=== PATIENT | female | born 1970 | race Caucasian/White ===

== ENCOUNTER 2018-08-16 01:06 | Emergency (ER) | payer OTHER ==
[2018-08-16 02:15] VITALS: BP 129/67; PULSE 74; TEMP 97.6; BMI 30.1
--- NOTE | 2018-08-16 02:35 | PDOC ---
*Physical Exam - Vital Signs Last Vital Signs Temp Pulse Resp BP Pulse Ox 97.6 F 74 20 129/67 98 08/16/18 02:14 08/16/18 02:14 08/16/18 02:14 08/16/18 02:14 08/16/18 02:14 ED Treatment Course - LABORATORY CBC & Chemistry Diagram: 08/16/18 03:10 08/16/18 03:10 Medical Decision Making - Medical Decision Making 08/16/18 05:14 Patient seen by the advanced practice provider under my direct supervision. Ancillary testing reviewed as necessary. I agree with plan as outlined by the advanced practice provider. *DC/Admit/Observation/Transfer Diagnosis at time of Disposition: Abdominal pain, right upper quadrant - Discharge Dispostion Disposition: HOME Condition at time of disposition: Stable - Referrals Referrals: Allison Barrera MD [Primary Care Provider] - 2 Days - Patient Instructions Printed Discharge Instructions: DI for Abdominal Pain-Adult Additional Instructions: Thank you for choosing [facility]. It was a pleasure taking care of you. Your labs raised concern for anemia. Your sugar level was also high. Be sure to take your diabetic meds Follow-up with your primary care doctor for further evaluation. Return to the Emergency Department if your symptoms worsen or persist or have other concerning symptoms. - Post Discharge Activity
--- NOTE | 2018-08-16 02:50 | PDOC ---
History of Present Illness - General Chief Complaint: Pain, Acute Stated Complaint: ABD PAIN Time Seen by Provider: 08/16/18 02:22 History Source: Patient Exam Limitations: No Limitations Past History - Past Medical History Allergies/Adverse Reactions: Allergies Allergy/AdvReac Type Severity Reaction Status Date / Time No Known Drug Allergies Allergy Verified 08/16/18 02:14 Home Medications: Ambulatory Orders Vit/Iron Fum/Folic AC [ Tablet] 1 each PO DAILY 03/28/14 Ibuprofen [Motrin -] 800 mg PO TID #60 tablet 11/24/14 Anemia: No Asthma: No Cancer: No Cardiac Disorders: No CVA: No COPD: No CHF: No Dementia: No Diabetes: No GI Disorders: No Disorders: No HTN: No Hypercholesterolemia: No Liver Disease: No Seizures: No Thyroid Disease: No - Surgical History Abdominal Surgery: No Appendectomy: No Cardiac Surgery: No Cholecystectomy: No Lung Surgery: No Neurologic Surgery: No Orthopedic Surgery: No - Reproductive History (#): 4 Para: 3 Therapeutic (s) & number: No Tubal Ligation: Yes Spontaneous : 1 - Immunization History Td Vaccination: Yes Immunization Up to Date: Yes - Suicide/Smoking/Psychosocial Hx Smoking Status: No Smoking History: Never smoked Years of Tobacco Use: 0 Have you smoked in the past 12 months: No Number of Cigarettes Smoked Daily: 0 Cigars Per Day: 0 Information on smoking cessation initiated: No Hx Alcohol Use: No Drug/Substance Use Hx: No Substance Use Type: None Hx Substance Use Treatment: No *Physical Exam - Vital Signs Last Vital Signs Temp Pulse Resp BP Pulse Ox 97.6 F 74 20 129/67 98 08/16/18 02:14 08/16/18 02:14 08/16/18 02:14 08/16/18 02:14 08/16/18 02:14 - Physical Exam General Appearance: No: Apparent Distress Respiratory/Chest: positive: Lungs Clear, Normal Breath Sounds. negative: Respiratory Distress Cardiovascular: positive: Regular Rhythm, Regular Rate, S1, S2. negative: Murmur Gastrointestinal/Abdominal: positive: Normal Bowel Sounds, Soft, Other ( negative moser's sign). negative: Tender, Distended, Guarding, Rebound, Hernia , Mass Integumentary: positive: Normal Color Neurologic: positive: Fully Oriented, Alert, Normal Mood/Affect Moderate Sedation - Procedure Monitoring Vital Signs: Procedure Monitoring Vital Signs Temperature 97.6 F 08/16/18 02:14 Pulse Rate 74 08/16/18 02:14 Respiratory Rate 20 08/16/18 02:14 Blood Pressure 129/67 08/16/18 02:14 O2 Sat by Pulse Oximetry (%) 98 08/16/18 02:14 ED Treatment Course - LABORATORY CBC & Chemistry Diagram: 08/16/18 03:10 08/16/18 03:10 Medical Decision Making - Medical Decision Making 47 y/o F with hx of DM, x3 presents with nonradiating RUQ pain x 1 week that is intermittent in nature with some nausea. Also had 2 episodes of loose stools (1 yesterday and 1 today). Took Tylenol with some relief in pain. Pain is not worsened by anything and not associated with food intake. Patient had eaten dinner around 7 PM and tolerated it fine. Denies fever, sob, cp, vomiting, urinary complaints. Patient appears very comfortable on exam; less suspicious for cholecystitis Bedside RUQ sono attempted to check for gallstones; no obvious stones noted though study a bit difficult given patient body habitus; no obvious pericholecystic fluid or gallbladder wall thickening noted Will check labs If abnormal LFTs noted, will consider official sono 08/16/18 02:50 Abnormal Lab Results 08/16/18 08/16/18 03:10 03:10 Hgb 9.7 L Hct 29.8 L D MCV 70.9 L MCH 23.0 L D RDW 16.3 H Neutrophils % 41.6 L D Lymphocytes % 49.7 H D Anion Gap 4 L Random Glucose 199 H Calcium 8.2 L AST 55 H ALT 75 H Albumin 3.0 L Labs reviewed - LFTs only minimally elevated, glucose 199; incidental anemia noted as well (likely microcytic) Patient explained results of labs Stable for discharge; advised further f/u with her PCP 08/16/18 04:14 *DC/Admit/Observation/Transfer Diagnosis at time of Disposition: Abdominal pain, right upper quadrant - Discharge Dispostion Disposition: HOME Condition at time of disposition: Stable Decision to Admit order: No - Referrals Referrals: Allison Barrera MD [Primary Care Provider] - 2 Days - Patient Instructions Printed Discharge Instructions: DI for Abdominal Pain-Adult Additional Instructions: Thank you for choosing [facility]. It was a pleasure taking care of you. Your labs raised concern for anemia. Your sugar level was also high. Be sure to take your diabetic meds Follow-up with your primary care doctor for further evaluation. Return to the Emergency Department if your symptoms worsen or persist or have other concerning symptoms. - Post Discharge Activity
[2018-08-16 03:22] LABS: BASO % 0.3 % (0-2.0); EOS % 1.5 % (0-4.5); HEMATOCRIT 29.8 % (32.4-45.2); HEMOGLOBIN 9.7 GM/dL (10.7-15.3); LYMPH % 49.7 % (8-40); MCHC 32.5 g/dl (32.0-36.0); MEAN CELL VOLUME 70.9 fl (80-96); MEAN PLT VOLUME 7.8 fl (7.5-11.1); MONO % 6.9 % (3.8-10.2); NEUT % 41.6 % (42.8-82.8); PLATELET COUNT 281 K/MM3 (134-434); RBC 4.21 M/mm3 (3.60-5.2); RDW 16.3 % (11.6-15.6); WHITE BLOOD COUNT 9.4 K/mm3 (4.0-10.0)
[2018-08-16 03:42] LABS: ALK PHOS 108 U/L (45-117); ANION GAP 4 MMOL/L (8-16); BILIRUBIN,TOTAL 0.2 mg/dL (0.2-1); BLOOD UREA NITROGEN 12 mg/dL (7-18); CALCIUM 8.2 mg/dL (8.5-10.1); CHLORIDE 106 mmol/L (98-107); CO2 29 mmol/L (21-32); CREATININE 0.7 mg/dL (0.55-1.3); GLUCOSE,RANDOM 199 mg/dL (74-106); LIPASE 318 U/L (73-393); POTASSIUM 4.5 mmol/L (3.5-5.1); SGOT/AST 55 U/L (15-37); SGPT/ALT 75 U/L (13-61); SODIUM 139 mmol/L (136-145); TOT PROT 7.2 g/dl (6.4-8.2)
[2018-08-16] MEDS ORDERED: ACETAMINOPHEN 325 MG TABLET (FP) PO ONE (04:45)
[2018-08-16] MEDS ORDERED: ACETAMINOPHEN 325 MG TABLET (FP) ONE (04:47)
== END 2018-08-16 04:57 | disposition home or self-care (01) ==
LOC: JER 01:06
PROC: BF42ZZZ Ultrasonography of Gallbladder (ICD-10-PCS; principal; 2018-08-16)
DX: R10.11 Right upper quadrant pain (principal); E11.9 Type 2 diabetes mellitus without complications; Z79.84 Long term (current) use of oral hypoglycemic drugs; D64.9 Anemia, unspecified
CPT/HCPCS: 36415; 76705; 80053; 83690; 85025; 99281-25

== ENCOUNTER 2018-08-27 23:28 | Emergency (ER) | payer OTHER ==
[2018-08-27 23:42] VITALS: BMI 20.7
--- NOTE | 2018-08-28 01:54 | PDOC ---
History of Present Illness - General History Source: Patient Exam Limitations: No Limitations - History of Present Illness Initial Comments: 08/28/18 02:24 The patient is a 47 year old female with no PMH who presents to the ER with intermittent epigastric pain since July. Patient had an ultrasound on August 06 after presenting with similar symptoms, which showed no cholecystitis. Patient has an appointment scheduled with Dr. Graff GI, on September 11 for evaluation of fatty liver and elevated LFTs. Patient denies any fever, chills, nausea, vomiting, diarrhea, constipations, or urinary symptoms. Allergies: NKA Past surgical history: None reported Social history: No reported alcohol, drug or cigarette use. <Valorie Thompson - Last Filed: 08/28/18 02:23> <Rina Dominguez - Last Filed: 08/28/18 03:05> - General Chief Complaint: Pain Stated Complaint: ABDOMINAL PAIN Time Seen by Provider: 08/28/18 00:27 Past History <Valorie Thompson - Last Filed: 08/28/18 02:23> - Past Medical History Anemia: No Asthma: No Cancer: No Cardiac Disorders: No CVA: No COPD: No CHF: No Dementia: No Diabetes: No GI Disorders: No Disorders: No HTN: No Hypercholesterolemia: No Liver Disease: No Seizures: No Thyroid Disease: No - Surgical History Abdominal Surgery: No Appendectomy: No Cardiac Surgery: No Cholecystectomy: No Lung Surgery: No Neurologic Surgery: No Orthopedic Surgery: No - Reproductive History (#): 4 Para: 3 Therapeutic (s) & number: No Tubal Ligation: Yes Spontaneous : 1 - Immunization History Td Vaccination: Yes Immunization Up to Date: Yes - Suicide/Smoking/Psychosocial Hx Smoking Status: No Smoking History: Never smoked Years of Tobacco Use: 0 Have you smoked in the past 12 months: No Number of Cigarettes Smoked Daily: 0 Cigars Per Day: 0 Information on smoking cessation initiated: No Hx Alcohol Use: No Drug/Substance Use Hx: No Substance Use Type: None Hx Substance Use Treatment: No <Rina Dominguez - Last Filed: 08/28/18 03:05> - Past Medical History Allergies/Adverse Reactions: Allergies Allergy/AdvReac Type Severity Reaction Status Date / Time No Known Drug Allergies Allergy Verified 08/27/18 23:42 Home Medications: Ambulatory Orders Vit/Iron Fum/Folic AC [ Tablet] 1 each PO DAILY 03/28/14 Ibuprofen [Motrin -] 800 mg PO TID #60 tablet 11/24/14 Oxycodone HCl/Acetaminophen [Percocet 5-325 mg Tablet] 1 tab PO BID PRN #8 tablet MDD 2 tabs 08/28/18 Pantoprazole Sodium [Protonix -] 40 mg PO DAILY #30 tablet.ec MDD 1 tab Review of Systems - Review of Systems Able to Perform ROS?: Yes Comments:: 08/28/18 02:24 ADULT ROS GENERAL/CONSTITUTIONAL: No fever or chills. No weakness. HEAD, EYES, EARS, NOSE AND THROAT: No change in vision. No ear pain or discharge. No sore throat. CARDIOVASCULAR: No chest pain or shortness of breath. RESPIRATORY: No cough, wheezing, or hemoptysis. GASTROINTESTINAL: No nausea, vomiting, diarrhea or constipation. (+) Epigastric pain. GENITOURINARY: No dysuria, frequency, or change in urination. MUSCULOSKELETAL: No joint or muscle swelling or pain. No neck or back pain. SKIN: No rash NEUROLOGIC: No headache, vertigo, loss of consciousness, or change in strength/ sensation. ENDOCRINE: No increased thirst. No abnormal weight change. HEMATOLOGIC/LYMPHATIC: No anemia, easy bleeding, or history of blood clots. ALLERGIC/IMMUNOLOGIC: No hives or skin allergy. <Valorie Thompson - Last Filed: 08/28/18 02:23> *Physical Exam - Vital Signs Last Vital Signs Temp Pulse Resp BP Pulse Ox 98.2 F 76 18 143/75 100 08/27/18 23:39 08/27/18 23:39 08/27/18 23:39 08/27/18 23:39 08/27/18 23:39 - Physical Exam Comments: 08/28/18 02:24 ADULT EXAM GENERAL: Awake, alert, and fully oriented, in no acute distress HEAD: No signs of trauma EYES: PERRLA, EOMI, sclera anicteric, conjunctiva clear ENT: Auricles normal inspection, hearing grossly normal, nares patent, oropharynx clear without exudates. Moist mucosa NECK: Normal ROM, supple, no lymphadenopathy, JVD, or masses LUNGS: Breath sounds equal, clear to auscultation bilaterally. No wheezes, and no crackles HEART: Regular rate and rhythm, normal S1 and S2, no murmurs, rubs or gallops ABDOMEN: (+) Tenderness to the RUQ with deep palpation. Soft, normoactive bowel sounds. No guarding, no rebound. No masses EXTREMITIES: Normal range of motion, no edema. No clubbing or cyanosis. No cords, erythema, or tenderness NEUROLOGICAL: Cranial nerves II through XII grossly intact. Normal speech, normal gait SKIN: Warm, Dry, normal turgor, no rashes or lesions noted. <Valorie Thompson - Last Filed: 08/28/18 02:23> - Vital Signs Last Vital Signs Temp Pulse Resp BP Pulse Ox 98.2 F 76 18 143/75 100 08/27/18 23:39 08/27/18 23:39 08/27/18 23:39 08/27/18 23:39 08/27/18 23:39 <Rina Dominguez - Last Filed: 08/28/18 03:05> Moderate Sedation - Procedure Monitoring Vital Signs: Procedure Monitoring Vital Signs Temperature 98.2 F 08/27/18 23:39 Pulse Rate 76 08/27/18 23:39 Respiratory Rate 18 08/27/18 23:39 Blood Pressure 143/75 08/27/18 23:39 O2 Sat by Pulse Oximetry (%) 100 08/27/18 23:39 <Valorie Thompson - Last Filed: 08/28/18 02:23> - Procedure Monitoring Vital Signs: Procedure Monitoring Vital Signs Temperature 98.2 F 08/27/18 23:39 Pulse Rate 76 08/27/18 23:39 Respiratory Rate 18 08/27/18 23:39 Blood Pressure 143/75 08/27/18 23:39 O2 Sat by Pulse Oximetry (%) 100 08/27/18 23:39 <Rina Dominguez - Last Filed: 08/28/18 03:05> ED Treatment Course - LABORATORY CBC & Chemistry Diagram: 08/28/18 01:35 08/28/18 01:35 - ADDITIONAL ORDERS Additional order review: 08/28/18 01:35 RBC 4.67 MCV 70.2 L MCHC 31.9 L RDW 15.9 H MPV 8.2 Neutrophils % 59.0 D Lymphocytes % 34.8 D Monocytes % 4.9 Eosinophils % 1.1 Basophils % 0.2 - Medications Given in the ED: ED Medications Discontinued Medications Generic Name Dose Route Start Last Admin Trade Name Sarwat PRN Reason Stop Dose Admin Acetaminophen 975 mg 08/28/18 02:01 08/28/18 02:17 Tylenol - PO 08/28/18 02:02 975 mg ONCE STA Administration Al Hydroxide/Mg Hydroxide 30 ml 08/28/18 02:00 08/28/18 02:17 Mylanta Oral Suspension - PO 08/28/18 02:01 30 ml ONCE ONE Administration Pantoprazole Sodium 40 mg 08/28/18 02:00 08/28/18 02:17 Protonix - PO 08/28/18 02:01 40 mg ONCE ONE Administration <Valorie Thompson - Last Filed: 08/28/18 02:23> - LABORATORY CBC & Chemistry Diagram: 08/28/18 01:35 08/28/18 01:35 <Rina Dominguez - Last Filed: 08/28/18 03:05> *DC/Admit/Observation/Transfer - Attestations Scribe Attestion: 08/28/18 02:25 Documentation prepared by Valorie Thompson, acting as medical technicians for Rina Dominguez MD. <Valorie Thompson - Last Filed: 08/28/18 02:23> <Rina Dominguez - Last Filed: 08/28/18 03:05> Diagnosis at time of Disposition: Epigastric pain - Discharge Dispostion Condition at time of disposition: Stable - Prescriptions Prescriptions: Oxycodone HCl/Acetaminophen [Percocet 5-325 mg Tablet] 1 tab PO BID PRN #8 tablet MDD 2 tabs PRN Reason: Severe Pain Pantoprazole Sodium [Protonix -] 40 mg PO DAILY #30 tablet.ec MDD 1 tab - Referrals Referrals: Brie Griffin NP [Primary Care Provider] - Twin Graff MD [Staff Physician] - - Patient Instructions Printed Discharge Instructions: DI for Epigastric Pain Additional Instructions: 1. please rock picker your medications at your pharmacy 2. Keep your appointment with Dr Graff - Post Discharge Activity
[2018-08-28 02:00] LABS: BASO % 0.2 % (0-2.0); EOS % 1.1 % (0-4.5); HEMATOCRIT 32.8 % (32.4-45.2); HEMOGLOBIN 10.4 GM/dL (10.7-15.3); LYMPH % 34.8 % (8-40); MCH 22.4 pg (25.7-33.7); MCHC 31.9 g/dl (32.0-36.0); MEAN CELL VOLUME 70.2 fl (80-96); MEAN PLT VOLUME 8.2 fl (7.5-11.1); MONO % 4.9 % (3.8-10.2); PLATELET COUNT 294 K/MM3 (134-434); RBC 4.67 M/mm3 (3.60-5.2); RDW 15.9 % (11.6-15.6); WHITE BLOOD COUNT 13.5 K/mm3 (4.0-10.0)
[2018-08-28] MEDS ORDERED: MAG HYDROX/AL HYDROX/SIMETH 30 ML UNIT-DOSE CUP PO ONE (02:00)
[2018-08-28] MEDS ORDERED: PANTOPRAZOLE 40 MG TABLET (FP) PO ONE (02:00)
[2018-08-28] MEDS ORDERED: ACETAMINOPHEN 500 MG TABLET (FP) PO STA (02:01)
[2018-08-28] MEDS ORDERED: MAG HYDROX/AL HYDROX/SIMETH 30 ML UNIT-DOSE CUP ONE (02:11)
[2018-08-28] MEDS ORDERED: ACETAMINOPHEN 325 MG TABLET (FP) ONE (02:11)
[2018-08-28] MEDS ORDERED: PANTOPRAZOLE 40 MG TABLET (FP) ONE (02:11)
[2018-08-28 02:25] LABS: ALBUMIN 3.2 g/dl (3.4-5.0); ALK PHOS 132 U/L (45-117); ANION GAP 6 MMOL/L (8-16); BILIRUBIN,TOTAL 0.2 mg/dL (0.2-1); BLOOD UREA NITROGEN 9 mg/dL (7-18); CALCIUM 8.7 mg/dL (8.5-10.1); CHLORIDE 101 mmol/L (98-107); CO2 28 mmol/L (21-32); CREATININE 0.7 mg/dL (0.55-1.3); GLUCOSE,RANDOM 247 mg/dL (74-106); POTASSIUM 4.7 mmol/L (3.5-5.1); SGOT/AST 36 U/L (15-37); SGPT/ALT 62 U/L (13-61); SODIUM 134 mmol/L (136-145); TOT PROT 7.7 g/dl (6.4-8.2)
[2018-08-28] MEDS ORDERED: SODIUM CHLORIDE 1,000 ML IV STA (02:59)
[2018-08-28 05:11] VITALS: BP 107/50; PULSE 65; TEMP 98.1
== END 2018-08-28 05:23 | disposition home or self-care (01) ==
LOC: JER 23:28
PROC: 3E0337Z Introduction of Electrolytic and Water Balance Substance into Peripheral Vein, Percutaneous Approach (ICD-10-PCS; principal; 2018-08-27)
DX: R10.11 Right upper quadrant pain (principal)
CPT/HCPCS: 36415; 74177-TC; 80053; 84703; 85025; 96360; 99282-25; J7030

== ENCOUNTER 2019-03-05 15:13 | Emergency (ER) | payer OTHER ==
--- NOTE | 2019-03-05 15:23 | PDOC ---
Rapid Medical Evaluation Chief Complaint: Pain Time Seen by Provider: 03/05/19 15:22 Medical Evaluation: Allergies Allergy/AdvReac Type Severity Reaction Status Date / Time No Known Drug Allergies Allergy Verified 08/27/18 23:42 03/05/19 15:23 I have performed a brief in-person evaluation of this patient. The patient presents with a chief complaint of:neck/shoulder pain Pertinent physical exam findings:stable and well tone I have ordered the following:nothing The patient will proceed to the ED for further evaluation. Discharge Disposition - Diagnosis Neck pain - Referrals - Patient Instructions - Post Discharge Activity
[2019-03-05 15:24] VITALS: BP 117/75; PULSE 100; TEMP 98.5; BMI 30.1
[2019-03-05] MEDS ORDERED: KETOROLAC TROMETHAMINE 60 MG/2 ML VIAL IM ONE (15:42)
[2019-03-05] MEDS ORDERED: KETOROLAC TROMETHAMINE 60 MG/2 ML VIAL ONE (15:46)
--- NOTE | 2019-03-05 15:48 | PDOC ---
History of Present Illness - General Chief Complaint: Pain Stated Complaint: LT.ARM PAIN Time Seen by Provider: 03/05/19 15:22 - History of Present Illness Initial Comments: 03/05/19 15:50 48-year-old female without comorbidities presents for evaluation of neck pain with left arm radicular symptoms. No loss of bowel or bladder function saddle paresthesia or systemic symptoms. This is going on for about the last week without any precipitating traumatic event. Past History - Past Medical History Allergies/Adverse Reactions: Allergies Allergy/AdvReac Type Severity Reaction Status Date / Time No Known Drug Allergies Allergy Verified 03/05/19 15:24 Home Medications: Ambulatory Orders Oxycodone HCl/Acetaminophen [Percocet 5-325 mg Tablet] 1 tab PO BID PRN #8 tablet MDD 2 tabs 08/28/18 Pantoprazole Sodium [Protonix -] 40 mg PO DAILY #30 tablet.ec MDD 1 tab Cyclobenzaprine HCl [Flexeril 10 mg] 10 mg PO HS PRN #10 tablet 03/05/19 Methylprednisolone [Medrol Dose Chavo] 4 mg PO ASDIR #21 tablet 03/05/19 Anemia: No Asthma: No Cancer: No Cardiac Disorders: No CVA: No COPD: No CHF: No Dementia: No Diabetes: No GI Disorders: No Disorders: No HTN: No Hypercholesterolemia: No Liver Disease: No Seizures: No Thyroid Disease: No - Surgical History Abdominal Surgery: No Appendectomy: No Cardiac Surgery: No Cholecystectomy: No Lung Surgery: No Neurologic Surgery: No Orthopedic Surgery: No - Reproductive History (#): 4 Para: 3 Therapeutic (s) & number: No Tubal Ligation: Yes Spontaneous : 1 - Immunization History Td Vaccination: Yes Immunization Up to Date: Yes - Suicide/Smoking/Psychosocial Hx Smoking Status: No Smoking History: Never smoked Years of Tobacco Use: 0 Have you smoked in the past 12 months: No Number of Cigarettes Smoked Daily: 0 Cigars Per Day: 0 Hx Alcohol Use: No Drug/Substance Use Hx: No Substance Use Type: None Hx Substance Use Treatment: No Review of Systems - Review of Systems Constitutional: No: Fever Musculoskeletal: Yes: Neck Pain *Physical Exam - Vital Signs Last Vital Signs Temp Pulse Resp BP Pulse Ox 98.5 F 100 H 18 117/75 99 03/05/19 15:23 03/05/19 15:23 03/05/19 15:23 03/05/19 15:23 03/05/19 15:23 - Physical Exam Comments: 03/05/19 15:49 Cervical spine skin color and temperature are normal; range of motion slightly decreased. 5 out of 5 strength bilateral upper extremities. There is no midline tenderness, there is mild bilateral paracervical muscular spasm and tenderness. NVID free of any gross sensory or motor deficits Medical Decision Making - Medical Decision Making 03/05/19 15:48 Cervical radiculopathy will treat with Medrol Dosepak and Flexeril have patient follow-up with neurosurgery *DC/Admit/Observation/Transfer Diagnosis at time of Disposition: Neck pain, Cervical radiculopathy - Discharge Dispostion Disposition: HOME Condition at time of disposition: Stable Decision to Admit order: No - Prescriptions Prescriptions: Cyclobenzaprine HCl [Flexeril 10 mg] 10 mg PO HS PRN #10 tablet PRN Reason: Muscle Spasms Methylprednisolone [Medrol Dose Chavo] 4 mg PO ASDIR #21 tablet - Referrals Referrals: Ghassan Jhaveri MD, FAANS [Staff Physician] - - Patient Instructions Printed Discharge Instructions: DI for Cervical Radiculopathy Additional Instructions: Please start steroid pack in the morning. Take the medication as directed. The muscle relaxers one tablet before bedtime and will make you sleepy. He may take Tylenol as directed in addition to the steroid pack. Avoid anti-inflammatory such as Advil Motrin Aleve and ibuprofen. You're given an injection of a long- acting anti-inflammatory in the emergency room do not take any anti- inflammatories. Return to the emergency room should symptoms worsen or go unresolved and follow- up with neuro or spine surgery without fail in 1-2 days for further evaluation and treatment options. - Post Discharge Activity
== END 2019-03-05 15:50 | disposition home or self-care (01) ==
LOC: JERFT 15:13
PROC: 3E0233Z Introduction of Anti-inflammatory into Muscle, Percutaneous Approach (ICD-10-PCS; principal; 2019-03-05)
DX: M54.2 Cervicalgia (principal); M54.12 Radiculopathy, cervical region
CPT/HCPCS: 96372; 99282-25

== ENCOUNTER 2019-06-06 21:31 | Emergency (ER) | payer OTHER ==
[2019-06-06 21:56] VITALS: BP 151/75; PULSE 92; TEMP 98.6; BMI 31.1
[2019-06-07] MEDS ORDERED: ACETAMINOPHEN 325 MG TABLET (FP) PO ONE (00:32)
[2019-06-07] MEDS ORDERED: ACETAMINOPHEN 325 MG TABLET (FP) ONE (00:42)
[2019-06-07] MEDS ORDERED: KETOROLAC TROMETHAMINE 60 MG/2 ML VIAL IM ONE (01:18)
[2019-06-07] MEDS ORDERED: METHOCARBAMOL 500 MG TABLET PO ONE (01:18)
[2019-06-07] MEDS ORDERED: KETOROLAC TROMETHAMINE 60 MG/2 ML VIAL ONE (01:26)
[2019-06-07] MEDS ORDERED: METHOCARBAMOL 500 MG TABLET ONE (01:26)
--- NOTE | 2019-06-07 01:30 | PDOC ---
History of Present Illness - General Chief Complaint: Pain Stated Complaint: NECK/ARM PAIN Time Seen by Provider: 06/07/19 01:10 History Source: Patient Exam Limitations: No Limitations Past History - Past Medical History Allergies/Adverse Reactions: Allergies Allergy/AdvReac Type Severity Reaction Status Date / Time No Known Drug Allergies Allergy Verified 03/05/19 15:24 Home Medications: Ambulatory Orders Methocarbamol [Robaxin -] 1,500 mg PO QID PRN #24 tablet 06/07/19 Anemia: No Asthma: No Cancer: No Cardiac Disorders: No CVA: No COPD: No CHF: No Dementia: No Diabetes: No GI Disorders: No Disorders: No HTN: No Hypercholesterolemia: No Liver Disease: No Seizures: No Thyroid Disease: No - Surgical History Abdominal Surgery: No Appendectomy: No Cardiac Surgery: No Cholecystectomy: No Lung Surgery: No Neurologic Surgery: No Orthopedic Surgery: No - Reproductive History (#): 4 Para: 3 Therapeutic (s) & number: No Tubal Ligation: Yes Spontaneous : 1 - Immunization History Td Vaccination: Yes Immunization Up to Date: Yes - Psycho Social/Smoking Cessation Hx Smoking Status: No Smoking History: Never smoked Years of Tobacco Use: 0 Have you smoked in the past 12 months: No Number of Cigarettes Smoked Daily: 0 Cigars Per Day: 0 Hx Alcohol Use: No Drug/Substance Use Hx: No Substance Use Type: None Hx Substance Use Treatment: No *Physical Exam - Vital Signs Last Vital Signs Temp Pulse Resp BP Pulse Ox 98.6 F 92 H 19 151/75 100 06/06/19 21:53 06/06/19 21:53 06/06/19 21:53 06/06/19 21:53 06/06/19 21:53 - Physical Exam General Appearance: No: Apparent Distress Neck: positive: Other (+muscle tightness/spasms along L upper traps). negative : Tender midline Respiratory/Chest: positive: Lungs Clear, Normal Breath Sounds. negative: Respiratory Distress Cardiovascular: positive: Regular Rhythm, Regular Rate, S1, S2. negative: Murmur Neurologic: positive: Alert, Normal Mood/Affect, Motor Strength 5/5 ED Treatment Course - Medications Given in the ED: ED Medications Discontinued Medications Generic Name Dose Route Start Last Admin Trade Name Freq PRN Reason Stop Dose Admin Acetaminophen 975 mg 06/07/19 00:32 06/07/19 00:44 Tylenol - PO 06/07/19 00:33 975 mg ONCE ONE Administration Medical Decision Making - Medical Decision Making 48 y/o F with no sig pmh presents with L upper neck pain radiating down arm x 3 days. Denies heavy work, trauma, fever, sob, cp, numbness/tingling/weakness of extremities. 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 Was seen in February for similar sxs; at that time, sxs resolved with Medrol dosepak and muscle relaxer. Likely muscle spasm No concern for ACS, radiculopathy based on exam Plan: Toradol, Robaxin 06/07/19 01:26 Discharge - Discharge Information Problems reviewed: Yes Clinical Impression/Diagnosis: Muscle spasm Condition: Stable Disposition: HOME - Admission No - Additional Discharge Information Prescriptions: Methocarbamol [Robaxin -] 1,500 mg PO QID PRN #24 tablet PRN Reason: Muscle Spasms Prescription Drug Monitoring Program (I-STOP) results: I-STOP not reviewed - Follow up/Referral Referrals: Allison Barrera MD [Primary Care Provider] - 2 Days - Patient Discharge Instructions Patient Printed Discharge Instructions: DI for Muscle Spasm Additional Instructions: Thank you for choosing [facility]. It was a pleasure taking care of you. You may take Motrin 600 mg every 6 hours by mouth as needed for mild to moderate pain. Take Motrin with food. Take Robaxin as needed for muscle spasms. This medication can also make you drowsy so please be cautious with driving or performing heavy physical work. Warm compresses/heating pads/epsom salt baths may also help. Return to the Emergency Department if your symptoms worsen or persist, you have fever, shortness of breath, chest pain, weakness of extremities or other concerning symptoms. - Post Discharge Activity
== END 2019-06-07 01:33 | disposition home or self-care (01) ==
LOC: JER 21:31 → JERFT 21:31 → JER 06-07 01:33
PROC: 3E0233Z Introduction of Anti-inflammatory into Muscle, Percutaneous Approach (ICD-10-PCS; principal; 2019-06-06)
DX: M62.838 Other muscle spasm (principal); Z98.51 Tubal ligation status
CPT/HCPCS: 99282-25

== ENCOUNTER 2022-05-09 04:48 | Day surgery (SDC) | payer OTHER ==
[2022-05-05 12:19] VITALS: BMI 29.2
[2022-05-09 10:32] VITALS: TEMP 97.8
[2022-05-09 11:13] VITALS: BP 113/69; PULSE 64; RESP 16
== END 2022-05-09 11:10 | disposition home or self-care (01) ==
LOC: JASU-ENDO 04:48
PROVIDERS: ATTEND Internal Medicine Gastroenterology
PROC: 0DBK8ZX Excision of Ascending Colon, Via Natural or Artificial Opening Endoscopic, Diagnostic (ICD-10-PCS; principal; 2022-05-09 08:45)
DX: Z12.11 Encounter for screening for malignant neoplasm of colon (principal); D12.2 Benign neoplasm of ascending colon; K64.8 Other hemorrhoids
CPT/HCPCS: 81025; 88305-TC